=== PATIENT | male | born 1970 | race Two or more races ===

== ENCOUNTER 2018-02-16 16:18 | Inpatient (IN) | payer OTHER ==
[~2018-02-16] VITALS: Ht 185.4 cm; Wt 181.4 kg
[2018-02-16 16:53] VITALS: BP 119/77
[2018-02-16] MEDS ORDERED: Isovue-300 100ml vial INJ PRN (17:30)
[2018-02-16 18:05] LABS: BASOPHILS % (AUTO) 1.7 % (0.0-2.0); EOSINOPHILS % (AUTO) 2.3 % (0.0-3.0); HEMATOCRIT 46.5 % (42.0-52.0); HEMOGLOBIN 15.5 G/DL (14.2-18.0); LYMPHOCYTES % (AUTO) 31.9 % (20.0-45.0); MEAN CORPUSCULAR VOLUME 89 FL (80-99); MONOCYTES % (AUTO) 9.3 % (1.0-10.0); NEUTROPHILS % (AUTO) 54.8 % (45.0-75.0); PLATELET COUNT 179 K/UL (150-450); RED BLOOD COUNT 5.23 M/UL (4.70-6.10); RED CELL DISTRIBUTION WIDTH 12.4 % (11.6-14.8); WHITE BLOOD COUNT 8.1 K/UL (4.8-10.8)
[2018-02-16 18:11] LABS: ANION GAP 7 mmol/L (5-15); BLOOD UREA NITROGEN 14 mg/dL (7-18); CALCIUM 9.1 MG/DL (8.5-10.1); CARBON DIOXIDE 28 MMOL/L (21-32); CHLORIDE 101 MMOL/L (98-107); CREATININE 0.7 MG/DL (0.55-1.30); POTASSIUM 4.3 MMOL/L (3.5-5.1); SODIUM 136 MMOL/L (136-145)
[2018-02-16 18:16] LABS: ALANINE AMINOTRANSFERASE 35 U/L (12-78); ALBUMIN 3.5 G/DL (3.4-5.0); ALBUMIN/GLOBULIN RATIO 0.6 (1.0-2.7); ALKALINE PHOSPHATASE 96 U/L (46-116); ASPARTATE AMINO TRANSFERASE 15 U/L (15-37); BILIRUBIN,TOTAL 0.4 MG/DL (0.2-1.0)
[2018-02-16 19:12] LABS: APPEARANCE,URINE CLEAR; BILIRUBIN, URINE NEGATIVE (NEGATIVE); GLUCOSE, URINE (UA) 2+ (NEGATIVE); KETONES,URINE NEGATIVE (NEGATIVE); LEUKOCYTE ESTERASE ,URINE 1+ (NEGATIVE); NITRITE,URINE NEGATIVE (NEGATIVE); PH,URINE 5 (4.5-8.0); PROTEIN,URINE 1+ (NEGATIVE); UROBILINOGEN,URINE NORMAL MG/DL (0.0-1.0)
[2018-02-16 19:19] LABS: COLOR,URINE YELLOW
[2018-02-16 20:00] VITALS: BP 128/76
--- NOTE | 2018-02-16 21:10 | Emergency Room Report ---
History of Present Illness General Chief Complaint: Pain Source: Patient, Medical Record Present Illness HPI 47-year-old male presents to the emergency department complaining of 5 out of 10 in severity right lower quadrant pain 5 days. 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 Patient states that he was evaluated by his primary care provider several days later and sent home with prescriptions. Patient states that he called his provider today as she has not had improvement of his symptoms and he was recommended to be seen at the emergency department to rule out appendicitis. Patient denies nausea, vomiting , fevers, chills he denies testicular pain or swelling, dysuria, hematuria, constipation or diarrhea. He denies history of hernias. Denies CP, Palpitations , LOC, AMS, or dizziness. Allergies: Coded Allergies: No Known Allergies (Unverified , 02/16/18) Patient History Past Medical History: see triage record Past Surgical History: none Pertinent Family History: none Reviewed Nursing Documentation: PMH: Agreed; PSxH: Agreed Nursing Documentation-PMH Past Medical History: No History, Except For Hx Hypertension: Yes Hx Diabetes: Yes Review of Systems All Other Systems: negative except mentioned in HPI Physical Exam Vital Signs Date Time Temp Pulse Resp B/P (MAP) Pulse Ox O2 Delivery O2 Flow Rate FiO2 02/16/18 16:35 98.1 96 18 119/77 95 Room Air 98.1 Sp02 EP Interpretation: reviewed, normal General Appearance: alert, GCS 15, non-toxic, mild distress, obese Head: normocephalic, atraumatic ENT: hearing grossly normal, normal voice Neck: full range of motion Respiratory: lungs clear, normal breath sounds, speaking full sentences Cardiovascular #1: regular rate, rhythm Gastrointestinal: normal bowel sounds, soft, tenderness - RLQ TTP Rectal: deferred Genitourinary: no CVA tenderness Musculoskeletal: back normal, gait/station normal, normal range of motion, non- tender Neurologic: alert, oriented x3, responsive, motor strength/tone normal, sensory intact, normal gait, speech normal, grossly normal Psychiatric: judgement/insight normal Skin: normal color, no rash, warm/dry, well hydrated Lymphatic: no adenopathy Medical Decision Making PA Attestation Dr. Mckinney is my supervising physician whom pt. management has been discussed with. Diagnostic Impression: Primary Impression: Abdominal pain Qualified Codes: R10.31 - Right lower quadrant pain ER Course 47-year-old male presents to the emergency department complaining of 5 out of 10 in severity right lower quadrant pain 5 days. 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 Patient states that he was evaluated by his primary care provider several days later and sent home with prescriptions. Patient states that he called his provider today as she has not had improvement of his symptoms and he was recommended to be seen at the emergency department to rule out appendicitis. Patient denies nausea, vomiting , fevers, chills he denies testicular pain or swelling, dysuria, hematuria, constipation or diarrhea. He denies history of hernias. Denies CP, Palpitations , LOC, AMS, or dizziness. Ddx considered but are not limited to Diverticulitis, acute appendicitis, Hernia , UC, PUD, GE, pancreatitis, gallstone just to name a few. Vital signs: are WNL, pt. is afebrile H&PE are most consistent with Moderate right lower quadrant abdominal tenderness on physical exam, nontoxic in appearance. Patient is gravely obese. ORDERS: -CBC, CMP, lipase: Unremarkable other than elevated glucose of 226 -lactic acid: 1.3 -UA: some glucose and protein otherwise unremarkable no evidence of infection. -Abdominal ultrasound: Pending -CT abdomen and pelvis with contrast was initially ordered however due to a limited restrictions patient is not a candidate for CT machine at this facility. ED INTERVENTIONS: -- 1000NS - DISPOSITION: at this time pt. will be admitted to Dr. Monson for Abdominal pain observation with serial physical exams . Dr. Monson agreed to admit the pt. and to continue pt. care management. Labs Test 02/16/18 17:10 02/16/18 18:20 02/16/18 19:20 White Blood Count 8.1 K/UL (4.8-10.8) Red Blood Count 5.23 M/UL (4.70-6.10) Hemoglobin 15.5 G/DL (14.2-18.0) Hematocrit 46.5 % (42.0-52.0) Mean Corpuscular Volume 89 FL (80-99) Mean Corpuscular Hemoglobin 29.6 PG (27.0-31.0) Mean Corpuscular Hemoglobin Concent 33.3 G/DL (32.0-36.0) Red Cell Distribution Width 12.4 % (11.6-14.8) Platelet Count 179 K/UL (150-450) Mean Platelet Volume 6.6 FL (6.5-10.1) Neutrophils (%) (Auto) 54.8 % (45.0-75.0) Lymphocytes (%) (Auto) 31.9 % (20.0-45.0) Monocytes (%) (Auto) 9.3 % (1.0-10.0) Eosinophils (%) (Auto) 2.3 % (0.0-3.0) Basophils (%) (Auto) 1.7 % (0.0-2.0) Sodium Level 136 MMOL/L (136-145) Potassium Level 4.3 MMOL/L (3.5-5.1) Chloride Level 101 MMOL/L (98-107) Carbon Dioxide Level 28 MMOL/L (21-32) Anion Gap 7 mmol/L (5-15) Blood Urea Nitrogen 14 mg/dL (7-18) Creatinine 0.7 MG/DL (0.55-1.30) Estimat Glomerular Filtration Rate > 60 mL/min (>60) Glucose Level 226 MG/DL (74-106) Calcium Level 9.1 MG/DL (8.5-10.1) Total Bilirubin 0.4 MG/DL (0.2-1.0) Aspartate Amino Transf (AST/SGOT) 15 U/L (15-37) Alanine Aminotransferase (ALT/SGPT) 35 U/L (12-78) Alkaline Phosphatase 96 U/L (46-116) Total Protein 8.9 G/DL (6.4-8.2) Albumin 3.5 G/DL (3.4-5.0) Globulin 5.4 g/dL Albumin/Globulin Ratio 0.6 (1.0-2.7) Lipase 95 U/L (73-393) Urine Color Yellow Urine Appearance Clear Urine pH 5 (4.5-8.0) Urine Specific [address] 1.025 (1.005-1.035) Urine Protein 1+ (NEGATIVE) Urine Glucose (UA) 2+ (NEGATIVE) Urine Ketones Negative (NEGATIVE) Urine Occult Blood Negative (NEGATIVE) Urine Nitrite Negative (NEGATIVE) Urine Bilirubin Negative (NEGATIVE) Urine Urobilinogen Normal MG/DL (0.0-1.0) Urine Leukocyte Esterase 1+ (NEGATIVE) Urine RBC 0-2 /HPF (0 - 0) Urine WBC 0-2 /HPF (0 - 0) Urine Squamous Epithelial Cells None /LPF (NONE/OCC) Urine Bacteria Few /HPF (NONE) Lactic Acid Level 1.30 mmol/L (0.4-2.0) CT/MRI/US Diagnostic Results CT/MRI/US Diagnostic Results : Imaging Test Ordered: Abdominal US Impression Pending. Last Vital Signs Date Time Temp Pulse Resp B/P (MAP) Pulse Ox O2 Delivery O2 Flow Rate FiO2 02/16/18 16:53 98.1 96 18 119/77 95 Room Air 98.1 Disposition: ADMITTED INPATIENT Condition: Serious Referrals: NOT CHOSEN IPA/,REFERRING (PCP) Salma Finney Feb 16, 2018 21:10
[2018-02-17] VITALS: BP 129/93
[2018-02-17] MEDS: D5 1/2NS 1,000 ML IV SCH ×2 (00:30→18:26)
[2018-02-17 04:00] VITALS: BP 145/76
[2018-02-17 06:43] LABS: BASOPHILS % (AUTO) 1.6 % (0.0-2.0); HEMATOCRIT 45.5 % (42.0-52.0); HEMOGLOBIN 15.8 G/DL (14.2-18.0); LYMPHOCYTES % (AUTO) 28.2 % (20.0-45.0); MEAN CORPUSCULAR VOLUME 89 FL (80-99); MONOCYTES % (AUTO) 9.9 % (1.0-10.0); NEUTROPHILS % (AUTO) 58.3 % (45.0-75.0); PLATELET COUNT 176 K/UL (150-450); RED BLOOD COUNT 5.11 M/UL (4.70-6.10); WHITE BLOOD COUNT 8.2 K/UL (4.8-10.8)
[2018-02-17 07:04] LABS: ANION GAP 4 mmol/L (5-15); BLOOD UREA NITROGEN 14 mg/dL (7-18); CALCIUM 8.7 MG/DL (8.5-10.1); CARBON DIOXIDE 32 MMOL/L (21-32); CHLORIDE 104 MMOL/L (98-107); CREATININE 0.7 MG/DL (0.55-1.30); POTASSIUM 4.2 MMOL/L (3.5-5.1); SODIUM 139 MMOL/L (136-145)
[2018-02-17 08:23] VITALS: BP 103/69
[2018-02-17 12:00] VITALS: BP 120/78
[2018-02-17] MEDS ORDERED: Gastrograffin 30ml ORAL PRN (13:15)
[2018-02-17] MEDS ORDERED: Isovue-300 100ml vial INJ PRN (13:15)
--- NOTE | 2018-02-17 14:05 | GI Initial Consult Note ---
History of Present Illness General Date patient seen: Feb 17, 2018 Time patient seen: 15:20 Reason for Hospitalization: Pain Referring physician: GREGORIO REYNA Reason for Consultation: ABDOMINAL PAIN Present Illness HPI 47-year-old male presents to the emergency department complaining of 5 out of 10 in severity right lower quadrant pain 5 days. 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 Patient states that he was evaluated by his primary care provider several days later and sent home with prescriptions. Patient states that he called his provider today as she has not had improvement of his symptoms and he was recommended to be seen at the emergency department to rule out appendicitis. Patient denies nausea, vomiting , fevers, chills he denies testicular pain or swelling, dysuria, hematuria, constipation or diarrhea. He denies history of hernias. Denies CP, Palpitations , LOC, AMS, or dizziness. GI consulted for abdominal pain. Pt seen, awake A&Ox4 NAD with no active s/sx of N/V/D. Has c/o of RLQ abdominal pain tender to touch. No anemia. No leukocytosis. No history of endoscopy / colonoscopy. Patient is morbid obese. At this point, no imaging studies. Home Meds Reported Medications Metformin Hcl* (METFORMIN HCL*) 500 Mg Tablet, 500 MG ORAL TWICE A DAY, TAB 02/16/18 Atorvastatin Calcium* (LIPITOR*) 10 Mg Tablet, 10 MG ORAL BEDTIME, TAB 02/16/18 Med list reviewed/reconciled: Yes Allergies: Coded Allergies: No Known Allergies (Unverified , 02/16/18) Patient History History Provided By: Patient, Medical Record PMH Narrative Past Medical History: see triage record Past Surgical History: none Pertinent Family History: none Reviewed Nursing Documentation: PMH: Agreed; PSxH: Agreed Nursing Documentation-PMH Past Medical History: No History, Except For Hx Hypertension: Yes Hx Diabetes: Yes Social History: Denies: smoking, alcohol use, drug use, other Review of Systems All Other Systems: negative except mentioned in HPI Physical Exam Vital Signs Date Time Temp Pulse Resp B/P (MAP) Pulse Ox O2 Delivery O2 Flow Rate FiO2 02/16/18 16:35 98.1 96 18 119/77 95 Room Air 98.1 Sp02 EP Interpretation: reviewed, normal Labs Laboratory Tests Test 02/16/18 17:10 02/16/18 18:20 02/16/18 19:20 02/17/18 06:25 White Blood Count 8.1 K/UL (4.8-10.8) 8.2 K/UL (4.8-10.8) Red Blood Count 5.23 M/UL (4.70-6.10) 5.11 M/UL (4.70-6.10) Hemoglobin 15.5 G/DL (14.2-18.0) 15.8 G/DL (14.2-18.0) Hematocrit 46.5 % (42.0-52.0) 45.5 % (42.0-52.0) Mean Corpuscular Volume 89 FL (80-99) 89 FL (80-99) Mean Corpuscular Hemoglobin 29.6 PG (27.0-31.0) 30.9 PG (27.0-31.0) Mean Corpuscular Hemoglobin Concent 33.3 G/DL (32.0-36.0) 34.7 G/DL (32.0-36.0) Red Cell Distribution Width 12.4 % (11.6-14.8) 12.0 % (11.6-14.8) Platelet Count 179 K/UL (150-450) 176 K/UL (150-450) Mean Platelet Volume 6.6 FL (6.5-10.1) 7.4 FL (6.5-10.1) Neutrophils (%) (Auto) 54.8 % (45.0-75.0) 58.3 % (45.0-75.0) Lymphocytes (%) (Auto) 31.9 % (20.0-45.0) 28.2 % (20.0-45.0) Monocytes (%) (Auto) 9.3 % (1.0-10.0) 9.9 % (1.0-10.0) Eosinophils (%) (Auto) 2.3 % (0.0-3.0) 2.0 % (0.0-3.0) Basophils (%) (Auto) 1.7 % (0.0-2.0) 1.6 % (0.0-2.0) Sodium Level 136 MMOL/L (136-145) 139 MMOL/L (136-145) Potassium Level 4.3 MMOL/L (3.5-5.1) 4.2 MMOL/L (3.5-5.1) Chloride Level 101 MMOL/L (98-107) 104 MMOL/L (98-107) Carbon Dioxide Level 28 MMOL/L (21-32) 32 MMOL/L (21-32) Anion Gap 7 mmol/L (5-15) 4 mmol/L (5-15) L Blood Urea Nitrogen 14 mg/dL (7-18) 14 mg/dL (7-18) Creatinine 0.7 MG/DL (0.55-1.30) 0.7 MG/DL (0.55-1.30) Estimat Glomerular Filtration Rate > 60 mL/min (>60) > 60 mL/min (>60) Glucose Level 226 MG/DL (74-106) H 192 MG/DL (74-106) H Calcium Level 9.1 MG/DL (8.5-10.1) 8.7 MG/DL (8.5-10.1) Total Bilirubin 0.4 MG/DL (0.2-1.0) Aspartate Amino Transf (AST/SGOT) 15 U/L (15-37) Alanine Aminotransferase (ALT/SGPT) 35 U/L (12-78) Alkaline Phosphatase 96 U/L (46-116) Total Protein 8.9 G/DL (6.4-8.2) H Albumin 3.5 G/DL (3.4-5.0) Globulin 5.4 g/dL Albumin/Globulin Ratio 0.6 (1.0-2.7) L Lipase 95 U/L (73-393) Urine Color Yellow Urine Appearance Clear Urine pH 5 (4.5-8.0) Urine Specific [place] 1.025 (1.005-1.035) Urine Protein 1+ (NEGATIVE) H Urine Glucose (UA) 2+ (NEGATIVE) H Urine Ketones Negative (NEGATIVE) Urine Occult Blood Negative (NEGATIVE) Urine Nitrite Negative (NEGATIVE) Urine Bilirubin Negative (NEGATIVE) Urine Urobilinogen Normal MG/DL (0.0-1.0) Urine Leukocyte Esterase 1+ (NEGATIVE) H Urine RBC 0-2 /HPF (0 - 0) H Urine WBC 0-2 /HPF (0 - 0) Urine Squamous Epithelial Cells None /LPF (NONE/OCC) Urine Bacteria Few /HPF (NONE) Lactic Acid Level 1.30 mmol/L (0.4-2.0) General Appearance: well appearing, no apparent distress, alert, obese Head: normocephalic EENT: PERRL/EOMI, normal ENT inspection Neck: supple Respiratory: normal breath sounds, no respiratory distress Cardiovascular: normal rate Gastrointestinal: normal inspection, non tender, soft, normal bowel sounds, non -distended Rectal: deferred Genitourinary: deferred Musculoskeletal: normal inspection, back normal Neurologic: normal inspection, alert, oriented x3, responsive Psychiatric: normal inspection, judgement/insight normal, memory normal Skin: normal inspection, normal color, no rash, warm/dry, palpation normal, well hydrated Lymphatic: normal inspection, no adenopathy Current Medications Current Medications Medications (Trade) Dose Ordered Sig/Emilio Route PRN Reason Start Time Stop Time Status Last Admin Dose Admin Acetaminophen (Tylenol) 650 mg Q4H PRN ORAL Mild Pain/Temp > 100.5 02/17/18 00:15 03/19/18 00:14 Dextrose/Sodium Chloride 1,000 ml @ 55 mls/hr [id number] IV 02/17/18 00:15 03/19/18 00:14 02/17/18 00:30 Diatrizoate Meglum/ Diatrizoate Sod (Gastrografin) 30 ml NOW PRN ORAL Radiology Procedure 02/17/18 13:15 02/19/18 13:14 Iopamidol (Isovue-300 100ml) 100 ml NOW PRN INJ Radiology Procedure 02/16/18 17:30 Iopamidol (Isovue-300 100ml) 100 ml NOW PRN INJ Radiology Procedure 02/17/18 13:15 02/19/18 13:14 GI: Plan Problems: (1) Abdominal pain Plan appendicitis vs hernia vs abdominal strain vs rectus hematoma no leukocytosis no anemia abdominal pain unknown etiology pass flatus had BM this morning DM management pain mgmt okay for ADA diet after imaging studies fu CT / Abdominal US bowel regime fu labs Discussed with Dr. Rios. Thank you for this patient referral, we will follow. The patient was seen and examined at bedside and all new and available data was reviewed in the patients chart. I agree with the above findings, impression and plan. (Patient seen earlier today. Signature stamp does not reflect patient encounter time.). - MD Sravani [facility] MINE CAR REPAIRER Feb 17, 2018 14:05
--- NOTE | 2018-02-17 15:01 | Consultation ---
History of Present Illness General Date patient seen: Feb 17, 2018 Chief Complaint: Pain Reason for Consultation: RLQ abdominal pain Present Illness HPI 47M with RLQ abdominal pain for 6 days. Went to see PCP and was told to go to ED because of pain. In ED was noted to have normal labs but RLQ tenderness on exam with rebound. Unfortunately too large for CT scan so imaging could not be performed. Admitted for observation. Pain cramping RLQ tenderness that has been slowly improving of the past few days. 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 Allergies: Coded Allergies: No Known Allergies (Unverified , 02/16/18) Medication History Scheduled Atorvastatin Calcium* (Lipitor*), 10 MG ORAL BEDTIME, (Reported) Metformin Hcl* (Metformin Hcl*), 500 MG ORAL TWICE A DAY, (Reported) Patient History History Provided By: Patient, Medical Record, PMD Healthcare decision maker Resuscitation status Full Code Advanced Directive on File Past Medical/Surgical History Past Medical/Surgical History: (1) Abdominal pain Review of Systems All Other Systems: negative except mentioned in HPI Physical Exam General Appearance: no apparent distress Lines, tubes and drains: peripheral HEENT: normocephalic, atraumatic, PERRL Neck: normal inspection Respiratory/Chest: lungs clear, normal breath sounds, no respiratory distress, no accessory muscle use Cardiovascular/Chest: normal peripheral pulses, normal rate Abdomen: normal bowel sounds, soft, no organomegaly, no mass, guarding, rebound , tender - RLQ, other - morbidly obese Extremities: normal range of motion Skin Exam: normal pigmentation Neurologic: ward secretary II-XII grossly normal, alert, oriented x 3 Last 24 Hour Vital Signs Date Time Temp Pulse Resp B/P (MAP) Pulse Ox O2 Delivery O2 Flow Rate FiO2 02/17/18 12:00 97.9 86 22 120/78 96 97.9 02/17/18 08:23 97.6 80 24 103/69 95 97.6 02/17/18 04:00 97.4 101 20 145/76 92 Room Air 97.4 02/17/18 00:00 97.8 86 22 129/93 95 Room Air 97.8 02/16/18 23:24 98.1 88 18 128/76 95 Room Air 98.1 02/16/18 20:00 98.1 88 18 128/76 95 Room Air 98.1 6/11/18 16:53 98.1 96 18 119/77 95 Room Air 98.1 02/16/18 16:35 98.1 96 18 119/77 95 Room Air 98.1 Intake and Output 02/16/18 02/17/18 19:00 07:00 Intake Total 0 ml 357.5 ml Output Total 700 ml Balance 0 ml -342.5 ml Intake Oral 0 ml 0 ml IV Total 357.5 ml Output Urine Total 700 ml # Voids 1 Laboratory Tests Test 02/16/18 17:10 02/16/18 18:20 02/16/18 19:20 02/17/18 06:25 White Blood Count 8.1 K/UL (4.8-10.8) 8.2 K/UL (4.8-10.8) Red Blood Count 5.23 M/UL (4.70-6.10) 5.11 M/UL (4.70-6.10) Hemoglobin 15.5 G/DL (14.2-18.0) 15.8 G/DL (14.2-18.0) Hematocrit 46.5 % (42.0-52.0) 45.5 % (42.0-52.0) Mean Corpuscular Volume 89 FL (80-99) 89 FL (80-99) Mean Corpuscular Hemoglobin 29.6 PG (27.0-31.0) 30.9 PG (27.0-31.0) Mean Corpuscular Hemoglobin Concent 33.3 G/DL (32.0-36.0) 34.7 G/DL (32.0-36.0) Red Cell Distribution Width 12.4 % (11.6-14.8) 12.0 % (11.6-14.8) Platelet Count 179 K/UL (150-450) 176 K/UL (150-450) Mean Platelet Volume 6.6 FL (6.5-10.1) 7.4 FL (6.5-10.1) Neutrophils (%) (Auto) 54.8 % (45.0-75.0) 58.3 % (45.0-75.0) Lymphocytes (%) (Auto) 31.9 % (20.0-45.0) 28.2 % (20.0-45.0) Monocytes (%) (Auto) 9.3 % (1.0-10.0) 9.9 % (1.0-10.0) Eosinophils (%) (Auto) 2.3 % (0.0-3.0) 2.0 % (0.0-3.0) Basophils (%) (Auto) 1.7 % (0.0-2.0) 1.6 % (0.0-2.0) Sodium Level 136 MMOL/L (136-145) 139 MMOL/L (136-145) Potassium Level 4.3 MMOL/L (3.5-5.1) 4.2 MMOL/L (3.5-5.1) Chloride Level 101 MMOL/L (98-107) 104 MMOL/L (98-107) Carbon Dioxide Level 28 MMOL/L (21-32) 32 MMOL/L (21-32) Anion Gap 7 mmol/L (5-15) 4 mmol/L (5-15) L Blood Urea Nitrogen 14 mg/dL (7-18) 14 mg/dL (7-18) Creatinine 0.7 MG/DL (0.55-1.30) 0.7 MG/DL (0.55-1.30) Estimat Glomerular Filtration Rate > 60 mL/min (>60) > 60 mL/min (>60) Glucose Level 226 MG/DL (74-106) H 192 MG/DL (74-106) H Calcium Level 9.1 MG/DL (8.5-10.1) 8.7 MG/DL (8.5-10.1) Total Bilirubin 0.4 MG/DL (0.2-1.0) Aspartate Amino Transf (AST/SGOT) 15 U/L (15-37) Alanine Aminotransferase (ALT/SGPT) 35 U/L (12-78) Alkaline Phosphatase 96 U/L (46-116) Total Protein 8.9 G/DL (6.4-8.2) H Albumin 3.5 G/DL (3.4-5.0) Globulin 5.4 g/dL Albumin/Globulin Ratio 0.6 (1.0-2.7) L Lipase 95 U/L (73-393) Urine Color Yellow Urine Appearance Clear Urine pH 5 (4.5-8.0) Urine Specific [place] 1.025 (1.005-1.035) Urine Protein 1+ (NEGATIVE) H Urine Glucose (UA) 2+ (NEGATIVE) H Urine Ketones Negative (NEGATIVE) Urine Occult Blood Negative (NEGATIVE) Urine Nitrite Negative (NEGATIVE) Urine Bilirubin Negative (NEGATIVE) Urine Urobilinogen Normal MG/DL (0.0-1.0) Urine Leukocyte Esterase 1+ (NEGATIVE) H Urine RBC 0-2 /HPF (0 - 0) H Urine WBC 0-2 /HPF (0 - 0) Urine Squamous Epithelial Cells None /LPF (NONE/OCC) Urine Bacteria Few /HPF (NONE) Lactic Acid Level 1.30 mmol/L (0.4-2.0) Height (Feet): 6 Height (Inches): 1.00 Weight (Pounds): 410 Medications Current Medications Medications (Trade) Dose Ordered Sig/Emilio Route PRN Reason Start Time Stop Time Status Last Admin Dose Admin Acetaminophen (Tylenol) 650 mg Q4H PRN ORAL Mild Pain/Temp > 100.5 02/17/18 00:15 03/19/18 00:14 Dextrose/Sodium Chloride 1,000 ml @ 55 mls/hr [id number] IV 02/17/18 00:15 03/19/18 00:14 02/17/18 00:30 Diatrizoate Meglum/ Diatrizoate Sod (Gastrografin) 30 ml NOW PRN ORAL Radiology Procedure 02/17/18 13:15 02/19/18 13:14 Iopamidol (Isovue-300 100ml) 100 ml NOW PRN INJ Radiology Procedure 02/16/18 17:30 Iopamidol (Isovue-300 100ml) 100 ml NOW PRN INJ Radiology Procedure 02/17/18 13:15 02/19/18 13:14 Assessment/Plan Problem List: (1) Abdominal pain Assessment & Plan: 47M RLQ abdominal pain. no n/v/f/c. normal bowel function on exam tender with rebound and guarding in RLQ unfortunately too large for CT scan labs normal. no signs of infection Ddx could be appy, hernia, strain, rectus hematoma fortunately improving and not worsening and labs okay will attempt ultrasound to evaluate for etiology if not may need diagnostic laparoscopy thank you ICD Codes: R10.9 - Unspecified abdominal pain SNOMED: [id number] Qualifiers: Qualified Codes: R10.31 - Right lower quadrant pain Status: stable Juan Acosta Feb 17, 2018 15:01
[2018-02-17 16:00] VITALS: BP 121/82
--- NOTE | 2018-02-17 16:45 | Consultation ---
DATE OF CONSULTATION: 02/17/2018 INFECTIOUS DISEASE CONSULTATION CONSULTING PHYSICIAN: Johnathan Burr M.D. PRIMARY ATTENDING PHYSICIAN: Chantel Monson M.D. REASON FOR CONSULT: Abdominal pain in the right lower quadrant. HISTORY OF PRESENT ILLNESS: The patient is a 47-year-old, male admitted yesterday from home complaining of pain in right lower quadrant for 5 days prior to admission. Pain was 5/10. 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 The patient states he had an episode of hematuria couple of days ago. The patient presented to the hospital for rule out of appendicitis, but because of the patient's morbid obesity, has had a CT scan of the abdomen and pelvis. PAST MEDICAL HISTORY: Significant for diabetes mellitus, taking oral hypoglycemic agents, hypertension, and has history of varicose vein surgery. MEDICATIONS: Sodium chloride and Tylenol. SOCIAL HISTORY: Single. No history of alcohol, drug abuse or smoking. Originally from [place], lives in [facility] for 10 years. REVIEW OF SYSTEMS: No nausea. No vomiting. No diarrhea. No fever. No chills. No coughing. No shortness of breath. An episode of hematuria x1. PHYSICAL EXAMINATION: GENERAL APPEARANCE: No acute distress and morbidly obese. VITAL SIGNS: Temperature 97.6 degrees, pulse 80, and blood pressure 103/69. HEAD AND NECK: [place] conjunctivae. HEART: S1 and S2 regular. LUNGS: Clear. ABDOMEN: Obese, mildly tender in the right lower quadrant. EXTREMITIES: No edema. NEUROLOGIC: Awake, alert, and oriented x3. LABORATORY AND DIAGNOSTIC DATA: UA showed leukocyte esterase 1+, rbc's 0 to 2 and wbc's 0 to 2. Sodium 139, potassium 4.2, chloride 104, bicarbonate 30, BUN 14, creatinine 0.7 and glucose 192. WBC 8.2, hemoglobin 15.8, hematocrit 45.5, and platelets are 176. IMPRESSION: Right lower quadrant pain. We will try to rule out appendicitis. The patient has diabetes mellitus, hypertension, and morbid obesity. RECOMMENDATION: We will follow up the abdominal ultrasound. Waiting for surgical evaluation. At the end of my exam, I thank Dr. Monson for involving me in the care of this patient. Johnathan Burr M.D. DR: DARLING JOB#: [id number] CC:
[2018-02-17] MEDS: Docusate 100mg cap ORAL SCH (18:00)
[2018-02-17 20:00] VITALS: BP 122/74
[2018-02-17] MEDS ORDERED: Miralax 17gm pkt ORAL SCH (21:00)
[2018-02-18] VITALS: BP 134/84
--- NOTE | 2018-02-18 03:15 | History and Physical Report ---
DATE OF ADMISSION: 02/16/2018 REASON FOR ADMISSION: Abdominal pain. HISTORY OF PRESENT ILLNESS: The patient complains of right lower quadrant pain for one day. The patient is morbidly obese. According to the patient, he lifted a patient who was a heavy patient and he sustained right lower quadrant tenderness and this happened about observation and monitoring purposes. The patient has a history of diabetes and hypertension. Denies nausea, vomiting, or diarrhea. The patient is morbidly obese as well. PAST MEDICAL HISTORY: Significant for hyperlipidemia, NIDDM, hypertension, and morbid obesity. PAST SURGICAL HISTORY: The patient had some kind of leg wound surgery. SOCIAL HISTORY: Denies history of smoking, alcohol, or illicit drugs. REVIEW OF SYSTEMS: HEENT: Denies headaches. RESPIRATORY: Denies shortness of breath. Denies cough. CARDIOVASCULAR: Denies chest pain. Denies orthopnea. GASTROINTESTINAL: Denies nausea, vomiting, or diarrhea. He developed right lower quadrant tenderness yesterday after he tried to lift a patient up according to the patient. EXTREMITIES: Denies pain in the lower extremities. NEUROLOGIC: Denies change in vision or speech pattern. PHYSICAL EXAMINATION: VITAL SIGNS: Temperature 98.1 degrees, pulse rate 88, and blood pressure 128/73. HEENT: PERRLA. NECK: Supple. No lymphadenopathy. CHEST: Clear to auscultation. GASTROINTESTINAL: Soft and distended, does have mild right lower quadrant tenderness. The patient is morbidly obese. Positive bowel sounds. EXTREMITIES: He does have edema 2+ in the lower extremities. NEUROLOGIC: He is able to move all four extremities. LABORATORY AND DIAGNOSTIC DATA: WBC of 8.1, hemoglobin 15.5, and platelets 179. Sodium 136, potassium 4.3, BUN of 14, creatinine 0.7 and glucose of 226. ASSESSMENT AND PLAN: Abdominal pain. I have asked Dr. Rios, Dr. Acosta, and Dr. Farmer to see the patient for the etiology unknown and rule out any infectious etiology, and also for the management of very mild dehydration and sugar is also mildly elevated. Chantel Monson M.D. DR: MARVEL JOB#: [id number] CC:
[2018-02-18 04:00] VITALS: BP 137/84
--- NOTE | 2018-02-18 06:56 | General Progress Note ---
Progress Note Progress Note abdominal pain my coverage dr shanae hernandez will take care over the patient dr owen and dr mott are on the case as well for abdominal pain work up Chantel Monson MD Feb 18, 2018 06:56
[2018-02-18 07:10] LABS: ANION GAP 6 mmol/L (5-15); BLOOD UREA NITROGEN 11 mg/dL (7-18); CALCIUM 8.7 MG/DL (8.5-10.1); CARBON DIOXIDE 30 MMOL/L (21-32); CHLORIDE 100 MMOL/L (98-107); CREATININE 0.7 MG/DL (0.55-1.30); POTASSIUM 3.7 MMOL/L (3.5-5.1); SODIUM 136 MMOL/L (136-145)
[2018-02-18 07:37] LABS: BASOPHILS % (AUTO) 0.8 % (0.0-2.0); EOSINOPHILS % (AUTO) 2.8 % (0.0-3.0); HEMATOCRIT 45.5 % (42.0-52.0); LYMPHOCYTES % (AUTO) 34.8 % (20.0-45.0); MEAN CORPUSCULAR VOLUME 89 FL (80-99); MONOCYTES % (AUTO) 9.3 % (1.0-10.0); NEUTROPHILS % (AUTO) 52.3 % (45.0-75.0); PLATELET COUNT 152 K/UL (150-450); RED BLOOD COUNT 5.13 M/UL (4.70-6.10); RED CELL DISTRIBUTION WIDTH 12.3 % (11.6-14.8); WHITE BLOOD COUNT 7.5 K/UL (4.8-10.8)
[2018-02-18 08:00] VITALS: BP 114/73
--- NOTE | 2018-02-18 08:38 | Diagnostic Imaging Report ---
Indication: Right lower quadrant pain Technique: Ramirez-scale and duplex images of the upper abdomen were obtained. Graded compression images of the right lower quadrant Comparison: none Findings: Gallbladder is unremarkable, without stones, wall thickening, nor pericholecystic fluid. Sonographic Enciso's sign is negative. Common bile duct measures to mm in diameter. No intrahepatic biliary ductal dilatation. Liver demonstrates diffusely increased echogenicity, consistent with diffuse hepatocellular disease, most likely fatty change. Portal vein and hepatic veins are patent. Pancreas is obscured by bowel gas. Spleen is obscured by bowel gas. Left kidney measures 13.3 cm in length. Right kidney measures 12.6 cm length. Both kidneys demonstrate normal echogenicity. There is no hydronephrosis. No focal abnormality . Abdominal aorta is obscured by bowel gas . . Compression images of the right lower quadrant do not demonstrate the appendix, either normal or abnormal Impression: Limited exam, due to bowel gas obscuring the spleen, pancreas, and abdominal aorta Negative for gallstones, dilated ducts, or other acute abnormality Liver is enlarged, demonstrates diffusely increased echogenicity, consistent with diffuse hepatocellular disease, most likely fatty change. Nonvisualization of the appendix, therefore nondiagnostic for the presence or absence of acute appendicitis
[2018-02-18] MEDS: Docusate 100mg cap ORAL SCH ×2 (08:41→13:00)
--- NOTE | 2018-02-18 11:04 | GI Progress Note ---
Assessment/Plan Problems: (1) Abdominal pain ICD Codes: R10.9 - Unspecified abdominal pain SNOMED: 47573570 Qualifiers: Qualified Codes: R10.31 - Right lower quadrant pain (2) Hyperglycemia ICD Codes: R73.9 - Hyperglycemia, unspecified SNOMED: 07914839 Status: stable Status Narrative Discussed with Dr. Rios. Assessment/Plan appendicitis vs hernia vs abdominal strain vs rectus hematoma no leukocytosis no anemia abdominal pain unknown etiology pass flatus had BM this morning CT unable to be performed. abdominal US negative patient denies any abdominal pain at this time, will advance diet for lunch okay for DC per GI standpoint if patient can tolerate lunch. glucose management pain mgmt bowel regime fu labs The patient was seen and examined at bedside and all new and available data was reviewed in the patients chart. I agree with the above findings, impression and plan. (Patient seen earlier today. Signature stamp does not reflect patient encounter time.). - Steven Rios MD Subjective Gastrointestinal/Abdominal: Reports: no symptoms Objective Last 24 Hour Vital Signs Date Time Temp Pulse Resp B/P (MAP) Pulse Ox O2 Delivery O2 Flow Rate FiO2 02/18/18 08:00 97.7 78 20 114/73 98 Room Air 97.7 02/18/18 08:00 97.7 78 20 114/73 98 97.7 02/18/18 04:00 97.5 85 20 137/84 85 Room Air 97.5 02/18/18 00:00 97.3 101 18 134/84 96 Room Air 97.3 02/17/18 20:00 97.6 85 18 122/74 96 Room Air 97.6 02/17/18 16:00 97.8 71 20 121/82 95 97.8 02/17/18 12:00 97.9 86 22 120/78 96 97.9 Intake and Output 02/17/18 02/18/18 19:00 07:00 Intake Total 1160 ml Output Total 1000 ml Balance 160 ml Intake Oral 500 ml IV Total 660 ml Output Urine Total 1000 ml # Voids 3 Laboratory Tests Test 02/18/18 05:20 White Blood Count 7.5 K/UL (4.8-10.8) Red Blood Count 5.13 M/UL (4.70-6.10) Hemoglobin 15.0 G/DL (14.2-18.0) Hematocrit 45.5 % (42.0-52.0) Mean Corpuscular Volume 89 FL (80-99) Mean Corpuscular Hemoglobin 29.3 PG (27.0-31.0) Mean Corpuscular Hemoglobin Concent 33.1 G/DL (32.0-36.0) Red Cell Distribution Width 12.3 % (11.6-14.8) Platelet Count 152 K/UL (150-450) Mean Platelet Volume 7.0 FL (6.5-10.1) Neutrophils (%) (Auto) 52.3 % (45.0-75.0) Lymphocytes (%) (Auto) 34.8 % (20.0-45.0) Monocytes (%) (Auto) 9.3 % (1.0-10.0) Eosinophils (%) (Auto) 2.8 % (0.0-3.0) Basophils (%) (Auto) 0.8 % (0.0-2.0) Sodium Level 136 MMOL/L (136-145) Potassium Level 3.7 MMOL/L (3.5-5.1) Chloride Level 100 MMOL/L (98-107) Carbon Dioxide Level 30 MMOL/L (21-32) Anion Gap 6 mmol/L (5-15) Blood Urea Nitrogen 11 mg/dL (7-18) Creatinine 0.7 MG/DL (0.55-1.30) Estimat Glomerular Filtration Rate > 60 mL/min (>60) Glucose Level 139 MG/DL (74-106) H Calcium Level 8.7 MG/DL (8.5-10.1) Height (Feet): 6 Height (Inches): 1.00 Weight (Pounds): 400 General Appearance: WD/WN, no apparent distress, alert, morbidly obese Cardiovascular: normal rate Respiratory/Chest: normal breath sounds, no respiratory distress Abdominal Exam: normal bowel sounds, non tender, soft Extremities: normal range of motion, non-tender Kylie Lassiter NP Feb 18, 2018 11:04
[2018-02-18 12:00] VITALS: BP 129/74
[2018-02-18] MEDS: D5 1/2NS 1,000 ML IV SCH (12:37)
--- NOTE | 2018-02-18 13:04 | Infectious Diseases Prog Note ---
Assessment/Plan Assessment/Plan A; Abdominal pain resolved Morbid obesity DM Fatty liver HPN P: observe off antibiotic agree with discharge Subjective ROS Limited/Unobtainable: No Constitutional: Reports: no symptoms HEENT: Reports: no symptoms Respiratory: Reports: no symptoms Cardiovascular: Reports: no symptoms Gastrointestinal/Abdominal: Reports: no symptoms Genitourinary: Reports: no symptoms Allergies: Coded Allergies: No Known Allergies (Unverified , 02/16/18) Objective Vital Signs Last 24 Hour Vital Signs Date Time Temp Pulse Resp B/P (MAP) Pulse Ox O2 Delivery O2 Flow Rate FiO2 02/18/18 12:00 97.5 82 20 129/74 98 97.5 02/18/18 08:00 97.7 78 20 114/73 98 Room Air 97.7 02/18/18 08:00 97.7 78 20 114/73 98 97.7 02/18/18 04:00 97.5 85 20 137/84 85 Room Air 97.5 02/18/18 00:00 97.3 101 18 134/84 96 Room Air 97.3 02/17/18 20:00 97.6 85 18 122/74 96 Room Air 97.6 02/17/18 16:00 97.8 71 20 121/82 95 97.8 Height (Feet): 6 Height (Inches): 1.00 Weight (Pounds): 400 General Appearance: no acute distress, other - mobid obesity Respiratory/Chest: lungs clear Cardiovascular: normal rate Abdomen: soft, non tender Extremities: no edema Neurologic/Psychiatric: alert, oriented x 3, responsive Laboratory Tests Test 02/18/18 05:20 White Blood Count 7.5 K/UL (4.8-10.8) Red Blood Count 5.13 M/UL (4.70-6.10) Hemoglobin 15.0 G/DL (14.2-18.0) Hematocrit 45.5 % (42.0-52.0) Mean Corpuscular Volume 89 FL (80-99) Mean Corpuscular Hemoglobin 29.3 PG (27.0-31.0) Mean Corpuscular Hemoglobin Concent 33.1 G/DL (32.0-36.0) Red Cell Distribution Width 12.3 % (11.6-14.8) Platelet Count 152 K/UL (150-450) Mean Platelet Volume 7.0 FL (6.5-10.1) Neutrophils (%) (Auto) 52.3 % (45.0-75.0) Lymphocytes (%) (Auto) 34.8 % (20.0-45.0) Monocytes (%) (Auto) 9.3 % (1.0-10.0) Eosinophils (%) (Auto) 2.8 % (0.0-3.0) Basophils (%) (Auto) 0.8 % (0.0-2.0) Sodium Level 136 MMOL/L (136-145) Potassium Level 3.7 MMOL/L (3.5-5.1) Chloride Level 100 MMOL/L (98-107) Carbon Dioxide Level 30 MMOL/L (21-32) Anion Gap 6 mmol/L (5-15) Blood Urea Nitrogen 11 mg/dL (7-18) Creatinine 0.7 MG/DL (0.55-1.30) Estimat Glomerular Filtration Rate > 60 mL/min (>60) Glucose Level 139 MG/DL (74-106) H Calcium Level 8.7 MG/DL (8.5-10.1) Current Medications Medications (Trade) Dose Ordered Sig/Emilio Route PRN Reason Start Time Stop Time Status Last Admin Dose Admin Acetaminophen (Tylenol) 650 mg Q4H PRN ORAL Mild Pain/Temp > 100.5 02/17/18 00:15 03/19/18 00:14 Dextrose/Sodium Chloride 1,000 ml @ 55 mls/hr [id number] IV 02/17/18 00:15 03/19/18 00:14 02/17/18 18:26 Diatrizoate Meglum/ Diatrizoate Sod (Gastrografin) 30 ml NOW PRN ORAL Radiology Procedure 02/17/18 13:15 02/19/18 13:14 Docusate Sodium (Colace) 100 mg THREE TIMES A DAY ORAL 02/17/18 18:00 03/19/18 17:59 02/17/18 18:00 Iopamidol (Isovue-300 100ml) 100 ml NOW PRN INJ Radiology Procedure 02/16/18 17:30 Iopamidol (Isovue-300 100ml) 100 ml NOW PRN INJ Radiology Procedure 02/17/18 13:15 02/19/18 13:14 Polyethylene Glycol (Miralax) 17 gm BEDTIME ORAL 02/17/18 21:00 03/19/18 20:59 Johnathan Burr MD Feb 18, 2018 13:04
[2018-02-18] MEDS ORDERED: D5 1/2NS 1000ml IV ONE (14:31)
--- NOTE | 2018-02-18 16:52 | General Surgery Progress Note ---
General Surgery-Progress Note Subjective Symptoms: improved, pain absent, tolerating diet, passing flatus, BM Additional Comments no acute events. pain resolved. no n/v/f/c. Objective Last 24 Hour Vital Signs Date Time Temp Pulse Resp B/P (MAP) Pulse Ox O2 Delivery O2 Flow Rate FiO2 02/18/18 12:00 97.5 82 20 129/74 98 97.5 02/18/18 08:00 97.7 78 20 114/73 98 Room Air 97.7 02/18/18 08:00 97.7 78 20 114/73 98 97.7 02/18/18 04:00 97.5 85 20 137/84 85 Room Air 97.5 02/18/18 00:00 97.3 101 18 134/84 96 Room Air 97.3 02/17/18 20:00 97.6 85 18 122/74 96 Room Air 97.6 I&O Intake and Output 02/17/18 02/18/18 19:00 07:00 Intake Total 1160 ml Output Total 1000 ml Balance 160 ml Intake Oral 500 ml IV Total 660 ml Output Urine Total 1000 ml # Voids 3 Drains: none Cardiovascular: RSR Respiratory: clear Abdomen: soft, flat, non-tender, present bowel sounds Extremities: no edema, no tenderness, no cyanosis Laboratory Tests Test 02/18/18 05:20 White Blood Count 7.5 K/UL (4.8-10.8) Red Blood Count 5.13 M/UL (4.70-6.10) Hemoglobin 15.0 G/DL (14.2-18.0) Hematocrit 45.5 % (42.0-52.0) Mean Corpuscular Volume 89 FL (80-99) Mean Corpuscular Hemoglobin 29.3 PG (27.0-31.0) Mean Corpuscular Hemoglobin Concent 33.1 G/DL (32.0-36.0) Red Cell Distribution Width 12.3 % (11.6-14.8) Platelet Count 152 K/UL (150-450) Mean Platelet Volume 7.0 FL (6.5-10.1) Neutrophils (%) (Auto) 52.3 % (45.0-75.0) Lymphocytes (%) (Auto) 34.8 % (20.0-45.0) Monocytes (%) (Auto) 9.3 % (1.0-10.0) Eosinophils (%) (Auto) 2.8 % (0.0-3.0) Basophils (%) (Auto) 0.8 % (0.0-2.0) Sodium Level 136 MMOL/L (136-145) Potassium Level 3.7 MMOL/L (3.5-5.1) Chloride Level 100 MMOL/L (98-107) Carbon Dioxide Level 30 MMOL/L (21-32) Anion Gap 6 mmol/L (5-15) Blood Urea Nitrogen 11 mg/dL (7-18) Creatinine 0.7 MG/DL (0.55-1.30) Estimat Glomerular Filtration Rate > 60 mL/min (>60) Glucose Level 139 MG/DL (74-106) H Calcium Level 8.7 MG/DL (8.5-10.1) Plan Problems: (1) Abdominal pain Assessment & Plan: 47M RLQ abdominal pain. no n/v/f/c. normal bowel function on exam tender with rebound and guarding in RLQ unfortunately too large for CT scan labs normal. no signs of infection Ddx could be appy, hernia, strain, rectus hematoma ultrasound okay pain resolved today tolerating diet. fortunately improving and not worsening and labs okay d/c home follow up in 1-2 weeks Juan Acosta Feb 18, 2018 16:52
--- NOTE | 2018-02-19 08:36 | Discharge Summary ---
Discharge Summary Discharge Summary _ DATE OF ADMISSION: 02/16/2018 DATE OF DISCHARGE: 02/18/2018 REASON FOR ADMISSION: 47 years old male with past medical history significant for hypertension, diabetes, presented to emergency department with right lower quadrant pain for 5 day, s rating it 5 out of 10 on a scale 1-10. 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 Patient was evaluated by his primary care provider and was sent home with prescription. Patient did not have any improvement of pain , and he subsequently called his primary care provider and was recommended to be seen in emergency department to rule out appendicitis. Patient denied nausea ,vomiting, fever ,chills. No testicular pain or swelling no hematuria, no constipation, no diarrhea , no history of hernia. He denied chest pain, shortness of breath, palpitations, dizziness . Upon evaluation in emergency room vital signs were stable. Unable to do the CT of the abdomen due to restrictions on based on patient ' weight( BMI 52.8). UA with no evidence of UTI. No leukocytosis, stable hemoglobin and hematocrit, stable renal parameters, electrolytes, LFT. Abdominal ultrasound was ordered. Patient was admitted for further management with diagnosis of abdominal pain CONSULTANTS: ID specialist Dr. Johnathan Burr GI specialist Dr. Rios surgery [facility] COURSE: Patient was admitted. Patient started on the IV fluids. GI and surgery consults were requested. Abdominal ultrasound revealed no gallstones or dilated ducts or other acute abnormality. It demonstrated enlarged liver with diffusely increased echogenicity, consistent with diffuse hepatocellular disease, most likely fatty changes. Pain management provided and was addressed. Patient was started slowly on diet and was able to tolerate diet. Antiemetics were on board as needed; no vomiting, no nausea . Per surgeon, abdominal exam revealed tenderness with guarding the right lower quadrant. CT scan was ordered , however patient was too large for CT scan at this facility. Laboratory workup was unremarkable, no evidence of infection. No fever. Differential diagnosis would include appendectomy , hernia, strain, rectus [id number], Patient was able to tolerate diet. Patient had bowel movement. Pain resolved. Ultrasound negative. Surgeon recommended discharge home and follow up with surgeon in 1-2 weeks. GI specialist closely followed. Diet was advanced, and patient was able to tolerate diet. Bowel regimen instituted, patient was passing flatus and had bowel movement. Blood sugar and blood pressure were closely monitored and managed with current regimen. DVT prophylaxis provided. ID specialist closely followed. No evidence of infection. ID specialist recommended to keep patient off antibiotics and closely observe. Patient clinically improved , no signs of infection , pain resolved. Patient was stable for discharge home with outpatient follow-up with the surgeon in 1-2 weeks and primary care provide in one week FINAL DIAGNOSES: Abdominal pain resolved Morbid obesity Hyperglycemia due to diabetes mellitus Fatty liver Hypertension DISCHARGE MEDICATIONS: See Medication Reconciliation list. DISCHARGE INSTRUCTIONS: Patient was discharged home; follow-up with primary care provider in one week ; follow-up with the surgeon in 1-2 weeks. Patient was instructed on ED precaution and signs and symptoms requiring return to emergency department. I have been assigned to dictate discharge summary for this account. I was not involved in the patient's management. Larissa Lewis NP Feb 19, 2018 08:36
== END 2018-02-18 14:32 | disposition home or self-care (01) | DRG 392 ==
LOC: EMR 18:15 → EDUNIT# 20:42 → OBSVTOIN 20:42 → 3E 20:42 → EDBEDREQ 21:28
DX: R10.31 Right lower quadrant pain (principal); Z68.43 Body mass index [BMI] 50.0-59.9, adult; E66.01 Morbid (severe) obesity due to excess calories; E11.65 Type 2 diabetes mellitus with hyperglycemia; K76.0 Fatty (change of) liver, not elsewhere classified; Z79.84 Long term (current) use of oral hypoglycemic drugs; I10 Essential (primary) hypertension
CPT/HCPCS: 36415; 74177; 76700; 80048; 80053; 81003; 82962; 83605; 83690; 85025; 99285